=== PATIENT | male | born 1985 | race Caucasian/White ===

== ENCOUNTER 2022-01-17 10:37 | Emergency (ER) | payer OTHER, SELFPAY ==
[2022-01-17 11:01] VITALS: BP 143/105; PULSE 83; RESP 18; TEMP 36.3; O2SAT 99; BMI 31.2
--- NOTE | 2022-01-17 11:43 | CT_ITS ---
Final Report Patient: DOM ALONSO Facility:?[facility] Patient ID:?[id number] Site Patient ID:?[id number]. Site :?[id number] Study:?CT Abdomen/Pelvis W/ 125CC [id number]/2022 1:05:45 PM Ordering Physician:Efren Villalobos Final Report: INDICATION: Diverticulitis. TECHNIQUE: CT of the abdomen and pelvis with 125 cc Isovue 370 IV contrast. Coronal and sagittal reconstructions. COMPARISON: CT of the abdomen and pelvis 07/25/2021. FINDINGS: Diffuse hepatic steatosis. There is a stable tiny low-attenuation lesion in the right hepatic lobe which is too small to characterize but likely benign (series 2, image 20). The spleen is enlarged measuring 17.7 cm in AP dimension. The gallbladder, pancreas, and adrenal glands are negative. No biliary dilation. Hepatic and portal veins are patent. Symmetric enhancement of the kidneys. No hydronephrosis or ureteral dilation. No obstructing urinary calculi identified. Mild diffuse bladder wall thickening. Nonenlarged prostate gland. No bowel dilation. Small duodenal diverticulum. Resolution of previously seen inflammatory changes of the sigmoid colon. Colonic diverticulosis without evidence of diverticulitis. There is diffuse wall thickening of the colon with increased pericolonic vascularity. Wall thickening is greatest in the ascending colon. Findings are compatible with a nonspecific colitis. Negative appendix. No intraperitoneal free air or fluid. Small fat containing umbilical hernia. There are multiple prominent right lower quadrant mesenteric lymph nodes which are increased in size compared to prior exam and likely reactive. The bones are unremarkable. The lung bases are clear. IMPRESSION: 1. Diffuse wall thickening of the colon compatible with a nonspecific colitis. 2. Resolution of previously seen inflammatory changes of the sigmoid colon. No evidence of diverticulitis on today`s exam. 3. Hepatic steatosis and moderate splenomegaly. 4. Mild diffuse bladder wall thickening. 5. Multiple prominent right lower quadrant mesenteric lymph nodes are likely reactive. Please note that all CT scans at this facility use dose modulation, iterative reconstruction, and/or weight-based dosing when appropriate to reduce radiation dose to as low as reasonably achievable. Dictated by Kecia Miguel MD @ 01/17/2022 1:32:36 PM (Electronic Signature)
--- NOTE | 2022-01-17 11:48 | ED_ITS ---
HPI - General Adult General Time Seen by Provider: 11:47 Date Seen: 01/17/22 Chief complaint: Abdominal Pain Stated complaint: Stomach Pain Time Seen by Provider: 01/17/22 10:52 Source: patient Mode of arrival: ambulatory Limitations: no limitations History of Present Illness HPI narrative: Patient is a 36 year white male had diverticulitis in July was treated with Augmentin by his report, and had recurrence within the last week. He was started on Cipro and Flagyl but has had a lot of side effects with diarrhea, tingling, extremity dysesthesia. He is very crampy with diarrhea. He has no other specific complaints, he does have a family history of colon cancer in his dad in his 50s. He has made a appointment with a GI doctor for colon study. He saw his primary care doctor on Saturday and was started on Cipro and Flagyl and thinks some of the reaction maybe to the medications. He is otherwise quite healthy, he has had no history of other GI issues, and is on no home medications other than the antibiotics. Related Data Home Medications Medication Instructions Recorded Confirmed ciprofloxacin 500 mg/5 mL oral 500 mg PO BID 01/17/22 01/17/22 suspension (Cipro) metronidazole 500 mg tablet 500 mg PO BID 01/17/22 01/17/22 oxycodone 5 mg tablet 5 mg PO Q4-6H PRN 01/17/22 01/17/22 Previous Rx's Medication Instructions Recorded amoxicillin 500 mg-potassium 1 tab PO BID #14 tab 01/17/22 clavulanate 125 mg tablet (Augmentin) hydrocodone 5 mg-acetaminophen 325 1 tab PO Q6H PRN #20 tab 01/17/22 mg tablet Allergies Allergy/AdvReac Type Severity Reaction Status Date / Time No Known Drug Allergies Allergy Verified 01/17/22 13:04 Review of Systems Narrative: Review of systems is negative for cardiopulmonary GI neurologic skin other mentioned above. Complete review of systems is negative other per positive HPI PFSH PFSH Medical History (Updated 01/17/22 @ 14:24 by Wilfredo Griffith MD) No significant past medical history Surgical History (Updated 01/17/22 @ 13:25 by Sangita Doran RN) No significant past surgical history Social History Smoking Status: Former smoker How often do you have a drink containing alcohol: 2-3 times a week AUDIT-C Alcohol total score: 3 Non-prescribed substance use: denies use Exam Narrative: Exam Narrative: Objective: Patient general is no apparent distress alert or x3 Noncyanotic Neck is supple Chest is clear Heart rhythm regular no murmur Abdomen is soft nontender bowel sounds normoactive mild tenderness to deep palpation left lower quadrant Patient denies symptoms extremities without edema skin exam is unremarkable Good peripheral perfusion Neurologic nonfocal. Const: Vital Signs, click to edit/add: Vital Signs - 24 hr 01/17/22 11:01 01/17/22 14:00 Temperature 97.4 F L 96.3 F L Pulse Rate [Left P ulse Oximeter] 83 60 Respiratory Rate 18 20 Blood Pressure [Le ft Upper Arm] 143/105 H 143/78 H Pulse Oximetry 99 97 Course Course Hospital Course: Patient will get an IV started, will get a CT scan of his abdomen did recheck as diverticulitis, laboratory studies, IV fluids Vital Signs Vital signs: Initial Vital Signs Temperature 97.4 F L 01/17/22 11:01 Temperature Source Temporal Artery Scan 01/17/22 11:01 Pulse Rate 83 01/17/22 11:01 Respiratory Rate 18 01/17/22 11:01 Blood Pressure 143/105 H 01/17/22 11:01 Blood Pressure Mean 117 01/17/22 11:01 Blood Pressure Position Sitting 01/17/22 11:01 Pulse Oximetry 99 01/17/22 11:01 Oxygen Delivery Method 01/17/22 11:01 Vital Signs Temperature 97.4 F L 01/17/22 11:01 Pulse Rate 83 01/17/22 11:01 Respiratory Rate 18 01/17/22 11:01 Blood Pressure 143/105 H 01/17/22 11:01 Pulse Oximetry 99 01/17/22 11:01 Temperature 96.3 F L 01/17/22 14:00 Pulse Rate 60 01/17/22 14:00 Respiratory Rate 20 01/17/22 14:00 Blood Pressure 143/78 H 01/17/22 14:00 Pulse Oximetry 97 01/17/22 14:00 Medical Decision Making Lab Data Labs: Lab Results 01/17/22 01/17/22 Range/Units 12:05 12:05 WBC 6.27 (4.50-11.00) K/uL RBC 5.22 (4.30-5.90) m/uL Hgb 15.1 (13.5-17.5) gm/dL Hct 42.8 (37.0-53.0) % MCV 82 (80-100) fL MCH 29 (26-34) pg MCHC 35 (32-36) gm/dL RDW Coeff of Aayush 12.8 (11.5-15.5) % Plt Count 233 (140-440) K/uL Neut % (Auto) 59.8 (42.0-72.0) % Lymph % (Auto) 20.4 (20-44) % Woodward % (Auto) 15.9 H (0.0-11.0) % Eos % (Auto) 3.3 (0.0-7.0) % Baso % (Auto) 0.3 (0.0-3.0) % Neut # (Auto) 3.74 (1.7-7.0) K/uL Lymph # (Auto) 1.28 (0.90-2.90) K/uL Woodward # (Auto) 1.00 H (0.00-0.90) K/UL Eos # (Auto) 0.21 (0.00-0.50) K/uL Baso # (Auto) 0.02 (0.00-0.30) K/uL Abs Immat Gran (auto) 0.02 (0.00-0.30) K/uL Sodium 137 (135-149) mmol/L Potassium 3.9 (3.6-5.1) mmol/L Chloride 100 (96-114) mmol/L Carbon Dioxide 26 (20-32) mmol/L BUN 16 (5-24) mg/dL Creatinine 1.0 (0.5-1.5) mg/dL Estimated Creat Clear 125.38 Glucose 92 (60-115) mg/dL Calcium 9.0 (8.4-10.6) mg/dL Total Bilirubin 1.6 H (0.1-1.5) mg/dL Direct Bilirubin 0.4 (0.0-0.5) mg/dL AST 52 H (12-35) U/L ALT 59 H (4-50) U/L Alkaline Phosphatase 66 (40-150) U/L C-Reactive Protein 0.9 (0.5-1.0) mg/dL Total Protein 7.5 (6.0-8.3) g/dL Albumin 4.8 (3.3-5.0) g/dL Discharge Plan Discharge Clinical Impression: Colitis Patient Disposition: Home w/ Parent or Adult Condition: Improved Additional Instructions: Yogurt by mouth, light diet, restart Augmentin in 2-3 days if feeling better to complete a 7 day course. Stop Cipro and Flagyl. Primary care follow-up in the next 2-3 days to recheck his colitis and symptoms, should he worsen he should return back to the emergency department for additional care. He does have an appoint with GI in March. Interestingly his no worries his symptoms pre started the Cipro and Flagyl, so he certainly could have some nonspecific colitis that may need followup. But at this point given he responded well to the Augmentin the passing of be reasonable to try again, would hold off on steroids at present. Follow up appointment scheduled at the [facility] on 01/23/22 with a 9:05am arrival time. Activity Level: No Restrictions Diet Detail: Patient should eat yogurt and engage in a vp genetic diet for the next few days Prescriptions: New amoxicillin-pot clavulanate [Augmentin] 500-125 mg tablet 1 tab PO BID Qty: 14 0RF hydrocodone-acetaminophen 5-325 mg tablet 1 tab PO Q6H PRN (Reason: pain) Qty: 20 0RF No Action oxycodone 5 mg tablet 5 mg PO Q4-6H PRN0RF ciprofloxacin [Cipro] 500 mg/5 mL suspension,microcapsule recon 500 mg PO BID 0RF metronidazole 500 mg tablet 500 mg PO BID 0RF Follow Up/Referrals: Emilio Dominguez MD [Primary Care Provider] - Stand Alone [facility] Inst[facility]
[2022-01-17] MEDS: 0.9 % SODIUM CHLORIDE 1000 ml 1,000 ML IV (12:05)
[2022-01-17 12:14] LABS: Slide Review Reflex No
[2022-01-17 12:20] LABS: Basophils Absolute Auto 0.02 K/uL (0.00-0.30); Basophils Percent Auto 0.3 % (0.0-3.0); Eosinophils Absolute Auto 0.21 K/uL (0.00-0.50); Eosinophils Percent Auto 3.3 % (0.0-7.0); Hematocrit 42.8 % (37.0-53.0); Hemoglobin* 15.1 gm/dL (13.5-17.5); Immature Granulocytes Abs Auto 0.02 K/uL (0.00-0.30); Lymphocytes Absolute Auto 1.28 K/uL (0.90-2.90); Lymphocytes Percent Auto 20.4 % (20-44); Mean Corpuscular HGB Conc 35 gm/dL (32-36); Mean Corpuscular Hemoglobin 29 pg (26-34); Mean Corpuscular Volume 82 fL (80-100); Monocytes Percent Auto 15.9 % (0.0-11.0); Neutrophils Absolute Auto 3.74 K/uL (1.7-7.0); Neutrophils Percent Auto 59.8 % (42.0-72.0); Platelet Count* 233 K/uL (140-440); RDW Coefficient of Variation % 12.8 % (11.5-15.5); Red Blood Count 5.22 m/uL (4.30-5.90); White Blood Count* 6.27 K/uL (4.50-11.00)
[2022-01-17] MEDS: MORPHINE 4 MG/ML INJ IVP (12:52)
[2022-01-17 12:58] LABS: Chloride* 100 mmol/L (96-114)
[2022-01-17 12:59] LABS: Albumin* 4.8 g/dL (3.3-5.0); Sodium* 137 mmol/L (135-149)
[2022-01-17 13:00] LABS: Potassium* 3.9 mmol/L (3.6-5.1)
[2022-01-17 13:01] LABS: Est. Creatinine Clearance* 125.38; Estimated Glomerular Filt Rate 100.03
[2022-01-17 13:02] LABS: Aspartate Amino Transferase* 52 U/L (12-35); Bilirubin Direct* 0.4 mg/dL (0.0-0.5); Bilirubin Total* 1.6 mg/dL (0.1-1.5); Carbon Dioxide* 26 mmol/L (20-32)
[2022-01-17 13:03] LABS: Alanine Aminotransferase* 59 U/L (4-50); Alkaline Phosphatase* 66 U/L (40-150); Blood Urea Nitrogen* 16 mg/dL (5-24); Glucose* 92 mg/dL (60-115); Total Protein* 7.5 g/dL (6.0-8.3)
[2022-01-17 13:05] LABS: C Reactive Protein* 0.9 mg/dL (0.5-1.0)
[2022-01-17 14:00] VITALS: BP 143/78; PULSE 60; RESP 20; TEMP 35.7; O2SAT 97
[2022-01-17 14:43] VITALS: BP 143/87; PULSE 87; RESP 20; TEMP 35.7
== END 2022-01-17 14:45 ==
PROVIDERS: Emergency Provider Family Medicine; PCP Family Medicine
DX: K52.9 Noninfective gastroenteritis and colitis, unspecified (principal)
CPT/HCPCS: 96365; 36415; 74177; 80048; 80076; 85025; 86140; 99285; J2270; J7030; Q9967

== ENCOUNTER 2024-08-12 13:19 | Emergency (ER) | payer OTHER, SELFPAY ==
[2024-08-12 13:40] VITALS: BP 154/97; PULSE 75; RESP 18; TEMP 36.8; O2SAT 97; BMI 32.1
--- NOTE | 2024-08-12 14:41 | ED_ITS ---
HPI - Arrhythmia/Palpitations General Chief Complaint: Arrhythmia/Palpitations Stated Complaint: heart palp Time Seen by Provider: 08/12/24 13:54 History of Present Illness HPI narrative: This 39-year-old male comes in reporting palpitations that seem to occur when he is laying at night. He does not notice anything during the day and has no other symptoms. He does not have any exercise intolerance. He does not report any chest pain. He states that he feels a palpitations sometimes at night and on occasion there is some lightheadedness and even decreased vision that occurs row briefly over the course of a few seconds. Related Data Previous Rx's ?Medication ?Instructions ?Recorded azithromycin 250 mg tablet See Rx Instructions PO .COMPLEX #6 07/09/24 tabs Allergies Allergy/AdvReac Type Severity Reaction Status Date / Time No Known Drug Allergies Allergy Verified 08/12/24 13:48 Review of Systems Status of ROS: Reports: 10 or more systems reviewed and unremarkable except as noted in History and below Narrative: Constitutional: No fevers, no weight gain or loss. Eyes: No discharge. HENT: No congestion, no sore throat, no ear pain. Cardiovascular: No chest pain. Palpitations as described above. Respiratory: No shortness of breath, no wheezes, no cough. Gastrointestinal: No abdominal pain, no vomiting, no diarrhea. Genitourinary: No dysuria, no hematuria. Musculoskeletal: Normal range of motion. Skin: No rashes, no pruritis. Neurological: No dizziness, weakness, sensory change, speech change. Endo/Heme/Allergies: No bruising or bleeding. No polydipsia. Pysch: no suicidality, no anxiety, no insomnia. All other systems reviewed and are negative. [facility] Medical History Obstructive sleep apnea ?G47.33 - Obstructive sleep apnea (adult) (pediatric) (ICD-10) Lumbar radiculopathy ?M54.16 - Radiculopathy, lumbar region (ICD-10) Diverticulitis ?K57.92 - Diverticulitis of intestine, part unspecified, without perforation or abscess without bleeding (ICD-10) Surgical History No significant past surgical history Social History Narrative: What is your current living situation?: I presently have a place to live In the past 12 months, utilities in danger of being shut off: no In past 12 months, lack of transportation kept you from medical appts, meetings, work, or getting things needed for daily living: no In the past 12 mos, have been you worried that your food would run out before you had money to buy more?: never true In the past 12 mos, the food you bought just didn't last and you didn't have money to buy more?: never true Smoking Status: Never smoker How often do you have a drink containing alcohol: 2-3 times a week AUDIT-C Alcohol total score: 3 Non-prescribed substance use: denies use How often does anyone, including family, friends and others, physically hurt you : never How often does anyone, including family, friends and others, insult or talk down to you: never How often does anyone, including family, friends and others, threaten you with harm: never How often does anyone, including family, friends and others, scream or curse at you: never Exam Narrative: Exam Narrative: Constitutional: Well-developed, well-nourished, no acute distress. HEENT: Normocephalic, atraumatic. Neck: Normal range of motion. Nontender. Supple. Heart: Regular. No murmurs. Normal rate. Intact distal pulses. Lungs: Clear to auscultation. No chest discomfort. No wheezes, rhonchi, or rales. Abdomen: Normal bowel sounds. Nontender. No rebound tenderness. Genitalia: Deferred. Back: No midline tenderness. Normal range of motion. Extremities: Normal range of motion. No injury. Skin: Intact. No rash. Warm. No erythema or pallor. Neurologic: No altered sensation. No weakness. Alert and oriented. Psychiatric: No suicidality. No anxiety or depression. No insomnia. Nursing notes and vitals signs are reviewed. Const: Vital Signs, click to edit/add: Vital Signs - 24 hr 08/12/24 13:40 Temperature 98.2 F Pulse Rate [Right Pulse Oximeter] 75 Respiratory Rate 18 Blood Pressure [Ri ght Upper Arm] 154/97 H Pulse Oximetry 97 Oxygen Delivery Me thod Room Air Course Vital Signs Vital signs: Initial Vital Signs Temperature 98.2 F 08/12/24 13:40 Temperature Source Temporal Artery Scan 08/12/24 13:40 Pulse Rate 75 08/12/24 13:40 Pulse Rhythm Regular 08/12/24 13:40 Pulse Strength 3+ Normal 08/12/24 13:40 Respiratory Rate 18 08/12/24 13:40 Blood Pressure 154/97 H 08/12/24 13:40 Blood Pressure Mean 116 H 08/12/24 13:40 Blood Pressure Position Sitting 08/12/24 13:40 Pulse Oximetry 97 08/12/24 13:40 Oxygen Delivery Method Room Air 08/12/24 13:40 Vital Signs Temperature 98.2 F 08/12/24 13:40 Pulse Rate 75 08/12/24 13:40 Respiratory Rate 18 08/12/24 13:40 Blood Pressure 154/97 H 08/12/24 13:40 Pulse Oximetry 97 08/12/24 13:40 Oxygen Delivery Method Room Air 08/12/24 13:40 Temperature 98.2 F 08/12/24 13:40 Pulse Rate 75 08/12/24 13:40 Respiratory Rate 18 08/12/24 13:40 Blood Pressure 154/97 H 08/12/24 13:40 Pulse Oximetry 97 08/12/24 13:40 Oxygen Delivery Method Room Air 08/12/24 13:40 MDM - Arrhythmia/Palpitations MDM Narrative Medical decision making narrative: This 39-year-old male comes in reporting palpitations that seemed only occur when he is laying quiet at night. Sometimes he feels brief lightheadedness when this happens. EKG was done here and shows normal sinus rhythm without any dysrhythmia. His story is suspicious for PVCs or PACs. He had his heart on the monitor and there was an episode of 2 PVCs occurring consecutively. He did feel brief symptoms when this happened. Throughout the rest of his stay here he had normal sinus rhythm without any dysrhythmia. The patient is otherwise healthy and has good exercise tolerance. He does not experience any symptoms through the course of the day. This only happens when he is starting to fall sleep at night. IA discussed lab and imaging options and the patient declined these for now. I also recommended a Zio patch but he stated that he wanted to wait for now. I did discuss things that can make the heart more likely to be irregular such as caffeine, alcohol, poor sleep, and other factors. He plans to follow-up with his primary physician. He will return if symptoms are persistent or wo rsening. ECG Data Attestation: I personally reviewed and interpreted this ECG as follows: Interpretation: Normal sinus rhythm. Rate is 64 beats per minute. There are no ST or T-wave abnormalities. Discharge Plan Discharge Clinical Impression: Ventricular premature beats Patient Disposition: Home, Self-Care Condition: Stable Additional Instructions: Continue current plans. Follow up with primary physician or return if symptoms are persistent or worsening. Prescriptions: No Action azithromycin 250 mg tablet See Rx Instructions PO .COMPLEX Qty: 6 0RF Rx Instructions: For 250 mg dose pack: take 500 mg today (day 1), then 250 mg for 4 days (days 2-5) PO Follow Up/Referrals: Emilio Dominguez MD [Primary Care Provider] - Stand Alone Forms: [employer] Info Instructions
== END 2024-08-12 15:55 | disposition home or self-care (01) ==
PROVIDERS: Emergency Provider Emergency Medicine Emergency Medical Services; PCP Family Medicine
DX: I49.3 Ventricular premature depolarization (principal)
CPT/HCPCS: 99284